=== PATIENT | male | born 1985 | race Caucasian/White ===

== ENCOUNTER 2017-04-28 20:06 | Emergency (ER) | payer MEDICAID, OTHER ==
[~2017-04-28] VITALS: Ht 165.1 cm; Wt 85.2 kg
[2017-04-28 20:13] VITALS: BP 130/84
== END 2017-04-28 21:03 | disposition left against medical advice (07) ==
LOC: ED 20:57
DX: Z53.21 Procedure and treatment not carried out due to patient leaving prior to being seen by health care provider (principal)
CPT/HCPCS: 93005; 99281

== ENCOUNTER 2017-05-08 01:29 | Emergency (ER) | payer OTHER ==
[~2017-05-08] VITALS: Ht 165.1 cm; Wt 82.1 kg
[2017-05-08 01:31] VITALS: BP 144/81
== END 2017-05-08 03:53 | disposition home or self-care (01) ==
LOC: ED 01:56
DX: G89.29 Other chronic pain (principal); M25.562 Pain in left knee; M25.561 Pain in right knee; F17.200 Nicotine dependence, unspecified, uncomplicated; Z88.8 Allergy status to other drugs, medicaments and biological substances
CPT/HCPCS: 99284